=== PATIENT | male | born 1990 | race Caucasian/White ===

== ENCOUNTER 2020-04-19 20:51 | Emergency (ER) | payer OTHER ==
[2020-04-19 20:59] VITALS: RESP 18
--- NOTE | 2020-04-19 21:55 | CT ---
EXAMINATION TYPE: CT soft tissue neck wo con DATE OF EXAM: 04/19/2020 HISTORY: right sided submandibular pain following dental procedure COMPARISON: 08/18/2015. CT DLP: 194.8 mGycm. Automated Exposure Control for Dose Reduction was Utilized. TECHNIQUE: CT scan of the neck is performed without contrast, axial images are obtained, coronal and sagittal reformatted images are reviewed. FINDINGS: Airway: No gross abnormality seen. Parotid/submandibular glands: No gross abnormality seen. Carotid/Vascular Structures: Grossly unremarkable. Osseous Structures: No significant abnormality. Other: No significant soft tissue abnormality or fluid collection. IMPRESSION: No significant abnormality is seen.
[2020-04-19] MEDS ORDERED: PENICILLIN V POTASSIUM 250 MG TAB PO STA (22:06)
--- NOTE | 2020-04-19 22:07 | ED ---
ENT HPI - General Chief complaint: ENT Stated complaint: Oral swelling/pain Time Seen by Provider: 04/19/20 21:02 Source: patient Mode of arrival: ambulatory Limitations: no limitations - History of Present Illness Initial comments: Patient is a 29-year-old male presenting to emergency Department with complaints of pain and swelling on his right jaw. Patient states it started about 3-4 days ago. He has had surgery on his right salivary gland about 4 years ago, and he has not had an issue since. Patient states a few days ago he started noticing some discomfort in the area and it has progressed to pain when he chews on the right side. He denies a history of dental abscess or dental pain. He denies any recent fever, chills, sore throat. Denies any trouble breathing. Denies any chest pain. He has no further complaints at this time. Upon arrival to the ER, his vital signs are stable. - Related Data Home Medications Medication Instructions Recorded Confirmed Citalopram Hydrobromide [CeleXA] 20 mg PO BID 04/19/20 04/19/20 Ibuprofen [Advil] 400 mg PO ONCE PRN 04/19/20 04/19/20 Metoprolol Tartrate [Lopressor] 25 mg PO BID 04/19/20 04/19/20 Previous Rx's Medication Instructions Recorded Penicillin V Potassium [Pen Vee K] 500 mg PO BID 5 Days #10 tablet 04/19/20 predniSONE 10 mg PO BID 5 Days #10 tab 04/19/20 Allergies Allergy/AdvReac Type Severity Reaction Status Date / Time No Known Allergies Allergy Verified 04/19/20 21:44 Review of Systems ROS Statement: Those systems with pertinent positive or pertinent negative responses have been documented in the HPI. ROS Other: All systems not noted in ROS Statement are negative. Past Medical History Past Medical History: No Reported History Additional Past Surgical History / Comment(s): throat surgery. General Exam - General Exam Comments Initial Comments: GENERAL: Patient is well-developed and well-nourished. Patient is nontoxic and in no acute distress. HEAD: Atraumatic, normocephalic. EYES: Pupils equal round and reactive to light, extraocular movements intact, sclera anicteric, conjunctiva are normal. Eyelids were unremarkable. ENT: TMs normal, nares patent, oropharynx clear without exudates. Moist mucous mem branes. No dental abscess seen or erythema of the gumline. NECK: Normal range of motion. Patient has mild pain of the right submandibular area, there is a small lymph node present, no erythema or signs of infection. LUNGS: Unlabored respirations. Breath sounds clear to auscultation bilaterally and equal. No wheezes rales or rhonchi. HEART: Regular rate and rhythm without murmurs, rubs or gallops. ABDOMEN: Soft, nontender, normoactive bowel sounds. No guarding, no rebound. No masses appreciated. : Deferred MUSCULOSKELETAL: Normal extremities with adequate strength and normal range of motion, no pitting or edema. No clubbing or cyanosis. NEUROLOGICAL: Patient is alert and oriented x 3. Motor and sensory are also intact. Cranial nerves II through XII grossly intact. Symmetrical smile. Normal speech, normal gait. PSYCH: Normal mood, normal affect. SKIN: Warm, Dry, normal turgor, no rashes or lesions noted. Limitations: no limitations Course Vital Signs 04/19/20 20:55 Temperature 97.4 F L Pulse Rate 97 Respiratory 18 Rate Blood Pressure 126/85 O2 Sat by Pulse 100 Oximetry Medical Decision Making - Medical Decision Making Patient is a 29-year-old male here for right submandibular pain and mild swelling for the past 3-4 days. He does have a history of surgery on his salivary gland 4 years ago. His exam reveals some mild lymph nodes in that area, no signs of infection, no dental abscess seen, no erythema the oropharynx or tonsillar enlargement. I did do a CT of the soft tissue of the neck which reveals no acute abnormality. Patient has had no fevers, his vitals are stable. I discussed with patient that he should follow up with his [facility] [place] that did his surgery. In the meantime he should continue with ibuprofen for discomfort, I will start him on a short course of antibiotics secondary to possible dental abscess. Patient is in agreement this plan of care. He is stable for discharge. Return parameters were discussed with the patient he verbalizes understanding. Disposition Clinical Impression: Submandibular gland swelling, Pain, dental Disposition: HOME SELF-CARE Condition: Stable Instructions (If sedation given, give patient instructions): Lymphadenopathy (ED) Additional Instructions: Please return to the Emergency Department if symptoms worsen or any other concerns. CT of the neck is normal today. Recommend taking antibiotic as prescribed along with steroids. Continue with ibuprofen for discomfort. Follow-up with your surgeon as discussed. Prescriptions: Penicillin V Potassium [Pen Vee K] 500 mg PO BID 5 Days #10 tablet predniSONE 10 mg PO BID 5 Days #10 tab Is patient prescribed a controlled substance at d/c from ED?: No Referrals: [facility] [Primary Care Provider] - 1-2 days
[2020-04-19 22:33] VITALS: BP 125/66; PULSE 76; TEMP 97.8
== END 2020-04-19 22:27 | disposition home or self-care (01) ==
LOC: EC 20:51
DX: K08.89 Other specified disorders of teeth and supporting structures (principal); R22.1 Localized swelling, mass and lump, neck; Z79.899 Other long term (current) drug therapy
CPT/HCPCS: 70490; 99283